=== PATIENT | male | born 1980 | race American Indian/Alaskan Native ===

== ENCOUNTER 2020-04-13 09:43 | Emergency (ER) | payer OTHER ==
--- NOTE | 2020-04-13 12:07 | CR ---
DATE OF SERVICE: 04/13/2020 CLINICAL DATA: WORK INJURY Left Foot: There is mildly displaced, mildly impacted, comminuted fracture through the distal metaphysis of the 2nd metatarsal. No other acute abnormalities. [facility]
--- NOTE | 2020-04-13 12:08 | CR ---
DATE OF SERVICE: 04/13/2020 CLINICAL DATA: WORK INJURY Left lower leg: No acute fracture or dislocation. No lytic or blastic bone lesions. [facility]
--- NOTE | 2020-04-13 13:01 | EDM.PDOC ---
ED HPI GENERAL MEDICAL PROBLEM - General Chief Complaint: General Stated Complaint: WORK INJURY Time Seen by Provider: 04/13/20 10:15 Source of Information: Reports: Patient, RN Notes Reviewed History Limitations: Reports: No Limitations - History of Present Illness INITIAL COMMENTS - FREE TEXT/NARRATIVE: This patient presents to the ED for evaluation of foot pain. 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 He has swelling of his left lower leg and significant pain in his foot. He denies other injuries or concerns. He denies recent illnesses including fever, sore throat, shortness of breath, or cough. Onset: Sudden Duration: Constant Location: Reports: Lower Extremity, Left Quality: Reports: Ache, Sharp, Throbbing Severity: Severe Improves with: Reports: None Worsens with: Reports: None, Movement Context: Reports: Activity Associated Symptoms: Reports: No Other Symptoms Left Foot Pain Score (Numeric/FACES): 7 Left Lower Leg Pain Score (Numeric/FACES): 3 Past Medical History - Past Health History Medical/Surgical History: Denies Medical/Surgical History Social & Family History - Family History Family Medical History: Noncontributory - Tobacco Use Smoking Status *Q: Current Every Day Smoker Years of Tobacco use: 10 Packs/Tins Daily: 1 - Caffeine Use Caffeine Use: Reports: Soda - Recreational Drug Use Recreational Drug Use: No ED ROS GENERAL - Review of Systems Review Of Systems: Comprehensive ROS is negative, except as noted in HPI. ED EXAM, GENERAL - Physical Exam Exam: See Below Exam Limited By: No Limitations General Appearance: Alert, Moderate Distress Eye Exam: Bilateral Eye: PERRL Ears: Normal External Exam, Normal TMs Nose: Normal Inspection Throat/Mouth: Normal Inspection, Normal Oropharynx Head: Atraumatic, Normocephalic Neck: Normal Inspection, Full Range of Motion Respiratory/Chest: No Respiratory Distress, No Accessory Muscle Use Extremities: Normal Inspection, Normal Range of Motion, Normal Capillary Refill , Other (Some swelling over distal left tibia, no tenderness with palpation, no discoloration. Significant tenderness with palpation of dorsum of left foot, moderate swelling, no discoloration or open injury. Distal CMS intact.) Neurological: Alert, Oriented Course - Vital Signs Last Recorded V/S: Last Vital Signs Temp 36.8 C 04/13/20 10:15 Pulse 65 04/13/20 10:15 Resp 18 04/13/20 10:15 BP 130/83 04/13/20 10:15 Pulse Ox 100 04/13/20 10:15 Departure - Departure Time of Disposition: 11:00 Disposition: Home, Self-Care 01 Condition: Good Clinical Impression: Fracture of foot - Discharge Information Instructions: Cast or Splint Care, Adult Referrals: PCP,None [Primary Care Provider] - Forms: ED Department Discharge Additional Instructions: Discharge home. Follow up with orthopedic next week back at home. Do not work, wear walking boot and use crutches. Return to the ER if you have any concerns. [phone] Sepsis Event Note - Evaluation Sepsis Screening Result: No Definite Risk - Focused Exam Vital Signs: Vital Signs Temp Pulse Resp BP Pulse Ox 04/13/20 10:15 36.8 C 65 18 130/83 100 04/13/20 10:12 36.8 C 65 18 130/83 100 Date Exam was Performed: 04/13/20 Time Exam was Performed: 12:54
== END 2020-04-13 10:50 | disposition home or self-care (01) ==
LOC: LB.ED 09:43
DX: S92.322A Displaced fracture of second metatarsal bone, left foot, initial encounter for closed fracture (principal); F17.210 Nicotine dependence, cigarettes, uncomplicated; W20.8XXA Other cause of strike by thrown, projected or falling object, initial encounter
CPT/HCPCS: 73590-LT; 73630-LT; 99283